=== PATIENT | female | born 1975 | race Caucasian/White ===

== ENCOUNTER 2020-05-04 15:44 | Outpatient (CLI) | payer BC, SELFPAY ==
--- NOTE | ~2020-05-04 | XR_ITS ---
EXAMINATION: XR ankle LT min 3V, XR foot LT min 3V DATE: 05/04/2020 16:18 INDICATION: Left foot and ankle pain post injury 3 days prior. TECHNIQUE: 1. Anteroposterior, mortise, additional oblique and lateral view of the left ankle were obtained. 2. Dorsoplantar, two oblique and lateral views of the left foot were obtained. COMPARISON: None. FINDINGS: Alignment of the foot and ankle is normal. No fracture. 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 Small Achilles and plantar calcaneal spurs. Sunny tional small enthesophyte versus heterotopic ossification related to chronic sprain along the medial malleolus. Prominent soft tissue swelling about the left ankle and distal lower leg. Increased densit y anterior to the tibiotalar joint line on the lateral radiograph of the ankle which is not appreciat ed on the lateral radiograph of the foot, equivocal for ankle joint effusion. IMPRESSION: 1. No acute osseous abnormality. Reviewed, dictated and finalized at location A. UCTION AIDE IMPRESSION: 1. No acute osseous abnormality.
== END 2020-05-04 15:45 | disposition home or self-care (01) ==
PROVIDERS: Visit Provider Podiatrist Foot & Ankle Surgery
DX: M79.672 Pain in left foot (principal); M25.572 Pain in left ankle and joints of left foot
CPT/HCPCS: 73610; 73630